=== PATIENT | male | born 1950 | race Caucasian/White ===

== ENCOUNTER → 2017-01-14 | Outpatient (CLI) | payer BC, MEDICARE ==
[~2017-01-14] MED LIST: CPAP INH; EPIPEN0.3 MG IM; LIPITOR10 MG PO; MOBIC15 MG PO; NICORETTE4 M1 PO; NICOTINE PATCH1 EAC1 TOP; NORCO 5-325 TA1 EACH PO; NORVASC5 MG PO; PRILOSEC20 MG PO; PROAIR HFA8.5 GM INH; TOPROL XL 5050 MG PO; VALSARTAN-HCTZ1 EAC3 PO
== END | disposition disaster alternative care site (69) ==
LOC: GRAD 12:00
DX: C34.31 Malignant neoplasm of lower lobe, right bronchus or lung (principal)
CPT/HCPCS: A9577

== ENCOUNTER → 2017-01-18 | Outpatient (CLI) | payer BC, MEDICARE | END | disposition disaster alternative care site (69) | LOC: GOPD 01-15 → GRAD 13:13 → GOPD 13:30 | PROC: 0GB23ZX Excision of Left Adrenal Gland, Percutaneous Approach, Diagnostic (ICD-10-PCS; principal; 2017-01-18) | DX: C74.92 Malignant neoplasm of unspecified part of left adrenal gland (principal); C34.31 Malignant neoplasm of lower lobe, right bronchus or lung; D69.59 Other secondary thrombocytopenia | CPT/HCPCS: J2001 ==

== ENCOUNTER → 2017-01-21 | Outpatient (CLI) | payer BC, MEDICARE | END | disposition disaster alternative care site (69) | LOC: GKIC 11:40 | DX: C34.31 Malignant neoplasm of lower lobe, right bronchus or lung (principal); C79.72 Secondary malignant neoplasm of left adrenal gland | CPT/HCPCS: A9552 ==